=== PATIENT | male | born 1960 | race Caucasian/White ===

== ENCOUNTER → 2018-01-31 13:51 | Outpatient (CLI) | payer OTHER, SELFPAY ==
--- NOTE | 2018-01-31 15:06 | PM.TREADMILL ---
Cardiac Stress Test Report Referral & Results Date Patient Seen: 01/31/18 Time Patient Seen: 15:07 Indication: Chest pain Rest ECG: Unremarkable Procedure Note: Today following both written and verbal informed consent, the patient was exercised according to a standard [facility] protocol. The patient exercised for a total of 7 min 1 sec achieving a maximum heart rate of 170. Patient's maximum systolic blood pressure was 158. This was an estimated 10.1 MET's. There are no ST segment changes noted Normal heart rate and blood pressure response to exercise Functional aerobic impairment rated 15% on the sedentary scale Single PVC during recovery Impression: Normal treadmill. No evidence of ischemia. Approximately average exercise capacity. Please note: Actual ECG tracings can be found in the PACS system.
== END ==
PROVIDERS: Family Provider Family Medicine Geriatric Medicine; PCP Family Medicine Geriatric Medicine; Visit Provider Family Medicine Geriatric Medicine
DX: R07.9 Chest pain, unspecified (principal)
CPT/HCPCS: 93016; 93017; 93018

== ENCOUNTER → 2018-08-16 19:47 | Outpatient (REF) | payer OTHER, SELFPAY ==
[2018-08-16 20:33] LABS: Cholesterol 200 mg/dL (140-199); HDL Cholesterol 44 mg/dL (40-60); LDL Cholesterol Calculated 143 mg/dL (<100); Triglycerides 67 mg/dL (35-150)
== END ==
LOC: LAB 19:47
PROVIDERS: Family Provider Family Medicine Geriatric Medicine; PCP Family Medicine Geriatric Medicine; Visit Provider Family Medicine Geriatric Medicine
DX: E78.5 Hyperlipidemia, unspecified (principal)
CPT/HCPCS: 36415; 80061